=== PATIENT | male | born 1995 | race African-American/Black ===

== ENCOUNTER 2017-04-12 18:24 | Emergency (ER) | payer SELFPAY ==
[~2017-04-12] VITALS: Ht 170.2 cm; Wt 43.7 kg
[~2017-04-12 18:24] MED LIST: FLEXERIL10 MG PO; LORCET 5-325 M1 EACH PO; MOTRIN600 MG PO; MOTRIN800 MG PO; NAPROSYN500 MG PO; NAPROXEN500 MG PO; ZANTAC150 MG PO; no home med
[2017-04-12 19:51] LABS: HEMATOCRIT 47.7 % (38.0-50.0); MCH 30.8 PG (29.0-34.0); MCV 90.7 FL (86-99); MEAN PLAT.VOLUME 9.2 uM^3 (9.0-12.4); PLATELET COUNT 182 K/uL (156-360); RBC DIS.WIDTH-CV 12.3 % (11.8-14.6); RBC DIS.WIDTH-SD 40.7 % (39-53); RED BLOOD COUNT 5.26 M/uL (4.00-5.50); WHITE BLOOD COUNT 5.9 K/uL (4.1-10.2)
[2017-04-12 20:02] LABS: CHLORIDE 100 mEq/L (99-109); POTASSIUM 3.7 mEq/L (3.7-5.4); SODIUM 139 mEq/L (136-147)
[2017-04-12 20:04] LABS: GLUCOSE 85 mg/dL (70-99)
[2017-04-12 20:05] LABS: ANION GAP 11 MEQ/L (2-14)
[2017-04-12 20:07] LABS: SERUM ETHYL ALCOHOL < 10 mg/dL
[2017-04-12 20:08] LABS: GFR ESTIMATE (CALCULATED) > 59 mL/min/
[2017-04-12 20:09] LABS: UREA NITROGEN (BUN) 22 mg/dL (9-23)
[2017-04-12 20:11] LABS: SALICYLATE < 5.0 MG/DL (15-30)
[2017-04-12 20:35] VITALS: BP 120/93
== END 2017-04-12 20:36 | disposition home or self-care (01) ==
LOC: EME 18:24
PROVIDERS: Emergency Medicine
DX: R20.2 Paresthesia of skin (principal); F19.10 Other psychoactive substance abuse, uncomplicated; F17.200 Nicotine dependence, unspecified, uncomplicated
CPT/HCPCS: 80048; 85027; 93005; 99281; 99282; G0480